=== PATIENT | male | born 1945 | race Caucasian/White ===

== ENCOUNTER 2018-08-26 06:11 | Day surgery (SDC) ==
[2018-08-26] MEDS: BETADINE OPTH PREP OP PRN ×2 (06:35→07:04)
[2018-08-26] MEDS: TETRACAINE 0.5% UNIT-DOSE OP PRN ×2 (06:35→07:04)
[2018-08-26] MEDS: CYCLOGYL 2% OPTH OP PRN ×3 (06:35→06:45)
[2018-08-26] MEDS ORDERED: LIDOCAINE 1% 20 ML MDV ID ONE (06:40)
[2018-08-26 06:47] VITALS: TEMP 97.8
[2018-08-26] MEDS ORDERED: LIDOCAINE 1%/PHENYLEPHRINE 1.5% BSS (SURGERY) INTRAOCULA ONE (06:57)
[2018-08-26] MEDS ORDERED: ZOFRAN 4 MG/2 ML IVP ONE (06:57)
[2018-08-26] MEDS ORDERED: DEX-MOXI-KETOR OPTH INJ 1/0.5/0.4 MG/ML IO ONE (06:57)
[2018-08-26] MEDS ORDERED: LIDOCAINE 1% 20 ML MDV ID STA (06:57)
[2018-08-26] MEDS ORDERED: BSS WITH EPINEPHRINE OP ONE (06:57)
[2018-08-26] MEDS ORDERED: BRIMONIDINE TARTRATE 0.2% OPTH SOL OP PRN (06:57)
[2018-08-26] MEDS ORDERED: TORADOL ONE (07:10)
[2018-08-26] MEDS ORDERED: VERSED ONE (07:10)
[2018-08-26] MEDS ORDERED: DECADRON 4 MG/ML SDV ONE (07:10)
[2018-08-26] MEDS ORDERED: ZOFRAN 4 MG/2 ML ONE (07:10)
[2018-08-26] MEDS ORDERED: SUBLIMAZE ONE (07:10)
[2018-08-26 16:08] VITALS: BP 129/56
== END 2018-08-26 08:15 | disposition home or self-care (01) ==
LOC: SURG 06:11
PROVIDERS: ATTEND Ophthalmology
DX: H25.811 Combined forms of age-related cataract, right eye (principal)